=== PATIENT | female | born 1945 | race Caucasian/White ===

== ENCOUNTER → 2022-10-26 08:08 | Outpatient (CLI) | payer MEDICARE, SELFPAY ==
--- NOTE | ~2022-10-26 | MR_ITS ---
MRI of the thoracic spine Clinical History: Fracture, pain Technique: Axial T2-weighted images, and sagittal T1-weighted, T2-weighted, and T2 fat-sat images wer e acquired. Findings: There is an acute, moderate to severe compression fracture of T7, with significant loss of height and marrow edema. There is a chronic moderate compression fracture deformity of T9, without ma rrow edema. No other fracture identified. There is mild retropulsion of the T7 vertebral body. No sub luxation evident. No significant disc bulge or herniation seen at any thoracic level. There is no spinal canal stenosis or cord compression. No epidural mass or collection seen. Paravertebral soft tissues are unremarkable. Impression: Acute moderate to severe compression fracture of T7. Chronic moderate compression fracture of T9. Reviewed, dictated and finalized at [facility]. [employer] Impression: Acute moderate to severe compression fracture of T7. Chronic moderate compression fracture of T9.
== END ==
PROVIDERS: PCP Physician Assistant; Visit Provider Physician Assistant
DX: M80.88XA Other osteoporosis with current pathological fracture, vertebra(e), initial encounter for fracture (principal); S22.060A Wedge compression fracture of T7-T8 vertebra, initial encounter for closed fracture; X58.XXXA Exposure to other specified factors, initial encounter
CPT/HCPCS: 72146